=== PATIENT | male | born 1980 | race Caucasian/White ===

== ENCOUNTER 2018-02-20 19:34 | Emergency (ER) | payer SELFPAY ==
[2018-02-20 19:51] VITALS: BP 167/83; PULSE 92; TEMP 101.7; BMI 29.2
[2018-02-20] MEDS ORDERED: ONDANSETRON 4 MG/2 ML VIAL IVPUSH ONE (20:41)
[2018-02-20] MEDS ORDERED: KETOROLAC TROMETHAMINE 30 MG/1 ML VIAL IVPUSH ONE (20:41)
[2018-02-20] MEDS ORDERED: ONDANSETRON 4 MG/2 ML VIAL ONE (21:15)
[2018-02-20] MEDS ORDERED: KETOROLAC TROMETHAMINE 30 MG/1 ML VIAL ONE (21:15)
--- NOTE | 2018-02-20 21:21 | PDOC ---
History of Present Illness - General Chief Complaint: Pain, Acute Stated Complaint: ABDOMINAL PAIN Time Seen by Provider: 02/20/18 20:21 History Source: Patient Exam Limitations: No Limitations - History of Present Illness Initial Comments: 02/20/18 21:11 Patient is a 37-year-old male with no past medical history here with complaints of nausea/vomiting/diarrhea/abdominal pain 2 days. Patient states he ate some [place] food and then 3 hours later had symptoms. Describes pain as sharp and cramping 10/10 which has progressively worsened over the past 2 days. Has vomited and diarrhea several times yesterday and today. Diarrhea is nonbloddy. Denies fever, chills, PMHX: neg PSOCHX: neg cig, drug, etoh ALL: NKDA GENERAL/CONSTITUTIONAL: [No fever or chills. No weakness. No weight change.] HEAD, EYES, EARS, NOSE AND THROAT: [No change in vision. No ear pain or discharge. No sore throat.] CARDIOVASCULAR: [No chest pain or shortness of breath.] RESPIRATORY: [No cough, wheezing, or hemoptysis.] GASTROINTESTINAL: (+) nausea, vomiting, diarrhea (-) constipation. No rectal bleeding.] GENITOURINARY: [No dysuria, frequency, or change in urination.] MUSCULOSKELETAL: [No joint or muscle swelling or pain. No neck or back pain.] SKIN AND BREASTS: [No rash or easy bruising.] NEUROLOGIC: [No headache, vertigo, loss of consciousness, or loss of sensation.] PSYCHIATRIC: [No depression or anxiety.] ENDOCRINE: [No increased thirst. No abnormal weight change.] HEMATOLOGIC/LYMPHATIC: [No anemia, easy bleeding, or history of blood clots.] ALLERGIC/IMMUNOLOGIC: [No hives or skin allergy. No latex allergy.] GENERAL: [The patient is awake, alert, and fully oriented, in moderate distress. ] HEAD: [Normal with no signs of trauma.] EYES: [Pupils equal, round and reactive to light, extraocular movements intact, sclera anicteric, conjunctiva clear.] ENT: [Ears normal, nares patent, oropharynx clear without exudates. Moist mucous membranes.] NECK: [Normal range of motion, supple without lymphadenopathy, JVD, or masses.] LUNGS: [Breath sounds equal, clear to auscultation bilaterally. No wheezes, and no crackles.] HEART: [Regular rate and rhythm, normal S1 and S2 without murmur, rub.] ABDOMEN: [Soft, tenderness generalized, normoactive bowel sounds. (+) guarding , no rebound. No masses.] EXTREMITIES: [Normal range of motion, no edema. No clubbing or cyanosis. No cords, erythema, or tenderness.] NEUROLOGICAL: [Cranial nerves II through XII grossly intact. Normal speech, normal gait.] PSYCH: [Normal mood, normal affect.] SKIN: [Warm, Dry, normal turgor, no rashes or lesions noted.] Past History - Past Medical History Allergies/Adverse Reactions: Allergies Allergy/AdvReac Type Severity Reaction Status Date / Time No Known Allergies Allergy Verified 02/20/18 19:41 Home Medications: Ambulatory Orders NK [No Known Home Medication] 02/20/18 - Suicide/Smoking/Psychosocial Hx Smoking History: Never smoked Hx Alcohol Use: No Drug/Substance Use Hx: No *Physical Exam - Vital Signs Last Vital Signs Temp Pulse Resp BP Pulse Ox 101.7 F H 92 H 22 167/83 97 02/20/18 19:41 02/20/18 19:41 02/20/18 19:41 02/20/18 19:41 02/20/18 19:41 ED Treatment Course - LABORATORY CBC & Chemistry Diagram: 02/20/18 21:00 02/20/18 21:00 - RADIOLOGY Radiology Studies Ordered: Category Date Time Status ABDOMEN & PELVIS CT WITH CONTR [CT] Stat CT Scan 02/20/18 20:41 Ordered Medical Decision Making - Medical Decision Making 02/20/18 21:11 Patient is a 37-year-old male with no past medical history here with complaints of nausea/vomiting/diarrhea/abdominal pain 2 days. Patient states he ate some [place] food and then 3 hours later had symptoms. Abd pain n/v/d consistent with gastroenteritis but patient has acute abd pain will get labs, ct scan, pain meds, antinausea. reassess 02/21/18 00:57 Patient Full Name: RADHA MICHAEL Patient Accession No: [id number] Patient : 1980 Reason for Exam: generalized abd pain Referring Physician: Patient Name: ALEC GARCIA THIS IS A PRELIMINARY REPORT FROM [facility] DATE OF SERVICE: 2018-02-20 23:12:18 IMAGES: [id number] EXAM: CT ABDOMEN AND PELVIS WITH CONTRAST No bowel obstruction, colitis, diverticulitis, free fluid or free air. Normal appendix. Unremarkable pancreas and gallbladder. Subcentimeter cortical hypodensities bilateral kidneys. Small umbilical hernia containing fat. THIS DOCUMENT HAS BEEN ELECTRONICALLY SIGNED Iva Zapien M.D. 02/21/2018 00:06 ZEN Beltran Please call [facility] [phone] with questions. INTERPRETING RADIOLOGIST: Iva Zapien MD Electronically Signed: Feb 21, 2018 12:06AM EDT Symptoms are resolved with by mouth challenge and discharged home.I discussed the physical exam findings, ancillary test results and final diagnoses with the patient. I answered all of the patient's questions. The patient was satisfied with the care received and felt comfortable with the discharge plan and treatment plan. The Patient agrees to follow up with the primary care physician within 24-72 hours. *DC/Admit/Observation/Transfer Diagnosis at time of Disposition: Gastroenteritis - Discharge Dispostion Disposition: HOME Condition at time of disposition: Stable - Referrals Referrals: [facility] [Provider Group] - Patient Instructions Printed Discharge Instructions: DI for Viral Gastroenteritis -- Adult Additional Instructions: Your Discharge Instructions: You must call primary care physician within 24 hours to arrange follow-up. Return to the Emergency Department with any new, persistent or worsening symptoms, for fever, chills, SOB, dizziness or any other concerning changes that may occur. Continue Tylenol and Motrin for fever and pain. - Post Discharge Activity Forms/Work/School Notes: Back to Work
[2018-02-20 21:28] LABS: BASO % 0.3 % (0-2.0); HEMATOCRIT 49.1 % (35.4-49); HEMOGLOBIN 16.8 GM/dL (11.7-16.9); LYMPH % 6.5 % (8-40); MCH 30.7 pg (25.7-33.7); MCHC 34.2 g/dl (32.0-35.9); MEAN CELL VOLUME 89.9 fl (80-96); MEAN PLT VOLUME 9.8 fl (7.5-11.1); MONO % 6.4 % (3.8-10.2); NEUT % 86.8 % (42.8-82.8); PLATELET COUNT 181 K/MM3 (134-434); RBC 5.46 M/mm3 (4.00-5.60); RDW 13.5 % (11.9-15.9); WHITE BLOOD COUNT 10.4 K/mm3 (4.0-10.0)
[2018-02-20 21:43] LABS: ALBUMIN 3.8 g/dl (3.4-5.0); ALK PHOS 114 U/L (45-117); ANION GAP 8 (8-16); BILIRUBIN,TOTAL 0.6 mg/dL (0.2-1.0); BLOOD UREA NITROGEN 11 mg/dL (7-18); CALCIUM 8.6 mg/dL (8.5-10.1); CHLORIDE 102 mmol/L (98-107); CO2 27 mmol/L (21-32); GLUCOSE,RANDOM 149 mg/dL (74-106); LIPASE 131 U/L (73-393); POTASSIUM 3.5 mmol/L (3.5-5.1); SGOT/AST 46 U/L (15-37); SGPT/ALT 133 U/L (12-78); SODIUM 137 mmol/L (136-145); TOT PROT 7.3 g/dl (6.4-8.2)
== END 2018-02-21 02:49 | disposition home or self-care (01) ==
LOC: JER 19:34
PROC: 3E033NZ Introduction of Analgesics, Hypnotics, Sedatives into Peripheral Vein, Percutaneous Approach (ICD-10-PCS; principal; 2018-02-20)
PROC: 3E033GC Introduction of Other Therapeutic Substance into Peripheral Vein, Percutaneous Approach (ICD-10-PCS; 2018-02-20)
DX: K52.9 Noninfective gastroenteritis and colitis, unspecified (principal)
CPT/HCPCS: 36415; 74177-TC; 80053; 83690; 85025; 99282-25

== ENCOUNTER 2024-07-11 12:40 | Emergency (ER) | payer OTHER ==
[2024-07-11 13:02] VITALS: BP 146/81; PULSE 65; RESP 16; TEMP 99; BMI 29.2
[2024-07-11] MEDS ORDERED: CYCLOBENZAPRINE HCL 5 MG TABLET ONE (15:35)
[2024-07-11] MEDS ORDERED: KETOROLAC TROMETHAMINE 30 MG/1 ML VIAL ONE (15:35)
[2024-07-11] MEDS: KETOROLAC TROMETHAMINE 30 MG/1 ML VIAL IM ONE (15:41)
[2024-07-11] MEDS: CYCLOBENZAPRINE HCL 5 MG TABLET PO ONE (15:42)
[2024-07-11 16:33] LABS: BASO % 0.6 % (0-2.0); EOS % 1.4 % (0-4.5); HEMATOCRIT 48.3 % (35.4-49); HEMOGLOBIN 16.6 GM/dL (11.7-16.9); MCH 30.8 pg (25.7-33.7); MCHC 34.3 g/dl (32.0-35.9); MEAN PLT VOLUME 8.1 fl (7.5-11.1); MONO % 9.6 % (3.8-10.2); NEUT % 61.4 % (42.8-82.8); PLATELET COUNT 282 10^3/uL (134-434); RBC 5.37 M/mm3 (4.00-5.60); RDW 13.5 % (11.9-15.9); WHITE BLOOD COUNT 7.3 K/mm3 (4.0-10.0)
[2024-07-11 16:55] LABS: POTASSIUM 4.6 mmol/L (3.5-5.1)
[2024-07-11 16:58] LABS: ALBUMIN 4.1 g/dl (3.4-5.0); BLOOD UREA NITROGEN 9.2 mg/dL (7-18); CALCIUM 9.2 mg/dL (8.5-10.1); MAGNESIUM 2.2 mg/dL (1.8-2.4)
[2024-07-11 17:01] LABS: PHOSPHOROUS 2.8 mg/dL (2.5-4.9)
[2024-07-11 17:03] LABS: TOT PROT 7.7 g/dl (6.4-8.2)
[2024-07-11 17:04] LABS: BILIRUBIN,TOTAL 0.6 mg/dL (0.2-1)
== END 2024-07-11 17:50 | disposition home or self-care (01) ==
LOC: JERFT 12:40
PROC: 3E0133Z Introduction of Anti-inflammatory into Subcutaneous Tissue, Percutaneous Approach (ICD-10-PCS; principal; 2024-07-11)
DX: M25.561 Pain in right knee (principal); M79.651 Pain in right thigh; M79.604 Pain in right leg; M79.605 Pain in left leg
CPT/HCPCS: 36415; 80053; 82550; 82553; 83735; 84100; 85025; 96372; 99284-25